=== PATIENT | female | born 1950 | race Caucasian/White ===

== ENCOUNTER 2025-03-21 12:58 | Outpatient (CLI) | payer MEDICARE, MEDICAID ==
[~2025-03-21 12:58] MED LIST: GABA300C PO; LEVO50TA PO; TRAZ-256 PO
--- NOTE | 2025-03-21 14:01 | RADIOLOGY REPORT ---
Indication: BRONCHIECTASIS Technique: CT axial images of the chest are obtained without contrast. Coronal and sagittal reformats were obtained. Radiation Dose Information: CTDI volume is 4 mGy. Dose-length product is 137 mGy*cm Comparison: None FINDINGS: The trachea is patent. Mucous plugging in the right lower lobe. No pneumothorax. There is bilateral pulmonary tree-in-bud nodularity and bronchiectatic changes diffusely. Solid 7 mm right upper lobe nodule. Right upper lobe soft tissue nodule measuring 6 mm. Right middle lobe soft tissue nodule measuring 4 mm. Heart enlarged. Coronary artery calcification disease. No supraclavicular axillary lymphadenopathy.m Pretracheal lymph node measuring 9 mm. Mild Thoracic degenerative disc disease. Thoracic dextrocurvature. IMPRESSION: Limited evaluation without contrast. Extensive pulmonary tree-in-bud nodularity, bronchiectatic changes which could represent sequela of infectious etiologies including mycobacterial infection, fungal /ABPA etiology, aspiration related changes, bronchial obstruction, bronchiolitis. Correlate clinically. Multiple pulmonary solid nodules measuring 4 mm which could be secondary to the underlying process or represent synchronous pulmonary nodules. Recommend follow-up per Fleischner society criteria. Cardiomegaly. Coronary artery calcification disease. Aortic atherosclerotic disease.
== END 2025-03-21 23:59 | disposition home or self-care (01) ==
LOC: RAD 12:58
PROVIDERS: ATTEND Internal Medicine
DX: R91.8 Other nonspecific abnormal finding of lung field (principal); I51.7 Cardiomegaly; J47.9 Bronchiectasis, uncomplicated; I25.10 Atherosclerotic heart disease of native coronary artery without angina pectoris; I70.0 Atherosclerosis of aorta
CPT/HCPCS: 71250